=== PATIENT | female | born 1990 | race Caucasian/White ===

== ENCOUNTER 2016-11-03 13:43 | Emergency (ER) | payer MEDICAID ==
[~2016-11-03] VITALS: Ht 167.6 cm; Wt 88.5 kg
[~2016-11-03 13:43] MED LIST: FERR325T30
[2016-11-03 13:51] VITALS: BP 148/88; PULSE 77; RESP 16; TEMP 97.3; O2SAT 98
[2016-11-03 16:24] VITALS: BP 121/80; PULSE 74; RESP 16; TEMP 97.3; O2SAT 100
== END 2016-11-03 16:24 | disposition home or self-care (01) ==
LOC: SED 13:43
DX: E01.0 Iodine-deficiency related diffuse (endemic) goiter (principal); D64.9 Anemia, unspecified
CPT/HCPCS: 76536-TC; 81025; 99284